=== PATIENT | female | born 1980 | race American Indian/Alaskan Native ===

== ENCOUNTER 2016-12-18 15:55 | Emergency (ER) | payer MEDICAID, OTHER ==
[2016-12-18 16:09] VITALS: BP 105/61
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
== END 2016-12-18 18:39 | disposition home or self-care (01) ==
LOC: ED 15:55
DX: S16.1XXA Strain of muscle, fascia and tendon at neck level, initial encounter (principal); S00.83XA Contusion of other part of head, initial encounter; V43.52XA Car driver injured in collision with other type car in traffic accident, initial encounter; Y93.89 Activity, other specified; Y99.8 Other external cause status; Y92.488 Other paved roadways as the place of occurrence of the external cause
CPT/HCPCS: 70450; 70486; 72040

== ENCOUNTER 2017-03-23 18:44 | Emergency (ER) | payer OTHER ==
[2017-03-23 20:05] VITALS: BP 115/57
== END 2017-03-24 01:40 | disposition left against medical advice (07) ==
LOC: ED 18:44
DX: M54.2 Cervicalgia (principal); V49.9XXA Car occupant (driver) (passenger) injured in unspecified traffic accident, initial encounter; Y93.89 Activity, other specified; Y99.9 Unspecified external cause status; Y92.410 Unspecified street and highway as the place of occurrence of the external cause; Z53.21 Procedure and treatment not carried out due to patient leaving prior to being seen by health care provider